=== PATIENT | female | born 1975 | race Hispanic/Latino ===

== ENCOUNTER 2016-12-28 11:12 | Emergency (ER) | payer OTHER ==
[~2016-12-28] VITALS: Ht 165.1 cm; Wt 58.5 kg
[~2016-12-28 11:12] MED LIST: BACTRIM DS 8001 TAB PO; FLEXERIL10 MG PO; MOBIC15 MG PO; MOTRIN 600 MG600 MG PO; POLYTRIM O200 GTT/BO OP; PYRIDIUM100 MG PO
[2016-12-28 12:23] LABS: ABSOLUTE BASOPHIL COUNT 0 /CUMM (0.0-0.2); ABSOLUTE EOSINOPHIL COUNT 0.1 /CUMM (0.0-0.7); ABSOLUTE GRANULOCYTE CT 5.6 /CUMM (1.4-6.5); ABSOLUTE LYMPH COUNT 2.5 /CUMM (1.2-3.4); ABSOLUTE MONOCYTE COUNT 0.5 /CUMM (0.10-0.60); BASOPHIL % 0.5 % (0.0-2.0); EOSINOPHIL % 0.8 % (0-5); GRANULOCYTE % 64.3 % (42.2-75.2); HEMATOCRIT 37.3 % (37-47); MEAN CORPUSCULAR HGB 29.8 PG (27.0-31.0); MEAN CORPUSCULAR HGB CONC 33.6 G/DL (33.0-37.0); MEAN CORPUSCULAR VOLUME 88.7 FL (81.0-99.0); PLATELET COUNT 217 /CUMM (130-400); RBC DISTRIBUTION WIDTH 13.3 % (11.5-14.5); RED BLOOD CELL CT 4.21 /CUMM (4.20-5.40); WHITE BLOOD CELL COUNT 8.7 /CUMM (4.8-10.8)
--- NOTE | 2016-12-28 13:11 | ED GI/GU/ABDOMINAL COMPLAINT ---
History of Present Illness General Chief Complaint: Abdominal Pain/Flank Pain Stated Complaint: KIDNEY PAIN Source: patient Exam Limitations: no limitations Vital Signs & Intake/Output Vital Signs & Intake/Output Vital Signs Date Time Temp Pulse Resp B/P Pulse O2 O2 Flow FiO2 Ox Delivery Rate 12/28 1355 97.6 65 18 119/64 100 Room Air 12/28 1130 98.2 85 20 125/73 100 Room Air Allergies Coded Allergies: NO KNOWN ALLERGIES (11/18/15) Reconcile Medications Ibuprofen 800 MG TABLET 1 TAB PO TID PRN PAIN Triage Note: PT TO ED WITH SON C/O RLQ PAIN RADIATING TO R FLANK X 3 DAYS. DENIES S/S. DENIES N/V/D. AFEBRILE. Triage Nurses Notes Reviewed? yes LMP (ages 10-50): 12/12 ? N Is pt currently ? No Onset: Abrupt Duration: day(s): (e) Timing: recent history Quality/Severity: moderate, sharpness Location: right flank Radiation: RLQ, RIGHT BACK Prior Abdominal Problems: none No Modifying Factors: none Associated Symptoms: abdominal pain HPI: 41 year old female who presents to the ER with right lower quadrang and back for 3 days. Pain is sharp in nature, worse with lying on that side. Denies trauma or fall. Denies urinary sumptoms. No fever or chills. No vomiting. Past History Travel History Traveled to [place] past 21 day No Medical History Any Pertinent Medical History? 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 No Review of Systems Review of Systems Constitutional: Reports: fever (subjective). Denies: chills. EENTM: Reports: no symptoms. Respiratory: Denies: cough, short of breath. Cardiovascular: Denies: chest pain, palpitations, peripheral edema. GI: Reports: abdominal pain. Genitourinary: Reports: frequency. Denies: hematuria. Musculoskeletal: Reports: back pain. Skin: Reports: no symptoms. Neurological/Psychological: Denies: anxiety. Hematologic/Endocrine: Reports: polyuria. Denies: bruising, bleeding, polydipsia. Immunologic/Allergic: Denies: splenectomy. All Other Systems: Reviewed and Negative Physical Exam Physical Exam General Appearance: well developed/nourished, alert, awake, mild distress Head: atraumatic, normal appearance Eyes: Bilateral: normal appearance, PERRL, EOMI. Ears, Nose, Throat, Mouth: hearing grossly normal, dental injury, moist mucous membrane Neck: normal inspection, supple, full range of motion Respiratory: normal breath sounds, chest non-tender, no respiratory distress Cardiovascular: regular rate/rhythm Peripheral Pulses: 2+ radial (R), 2+ radial (L) Gastrointestinal: normal bowel sounds, soft, tenderness (RIGHT FLANK) Back: normal inspection, normal range of motion, NO CVA TENDERNESS Extremities: normal range of motion Neurologic/Psych: no motor/sensory deficits, awake, alert, oriented x 3, normal gait Skin: intact, normal color, warm/dry Core Measures ACS in differential dx? No Severe Sepsis Present: No Septic Shock Present: No Progress Differential Diagnosis: appendicitis, diverticulitis, kidney stone, UTI/pyelo Plan of Care: Orders Procedure Date/time Status Add-on Test (ER Only) 12/28 1318 Active URINE 12/28 1250 Complete URINALYSIS 12/28 1150 Complete COMPREHENSIVE METABOLIC PANEL 12/28 1150 Complete CBC WITHOUT DIFFERENTIAL 12/28 1150 Complete Laboratory Tests 12/28/16 1250: Urine Color YEL, Urine Clarity CLEAR, Urine pH 6.0, Ur Specific Rigby 1.025, Urine Protein NEG, Urine Ketones NEG, Urine Nitrite NEG, Urine Bilirubin NEG, Urine Urobilinogen 0.2, Ur Leukocyte Esterase NEG, Ur Microscopic SEDIMENT EXAMINED, Urine RBC 1-3, Ur Epithelial Cells MOD H, Urine Mucus FEW, Urine Hemoglobin TRACE-INTACT, Urine Glucose NEG, Urine Test NEGATIVE 12/28/16 1215: Anion Gap 8, Estimated GFR > 60, BUN/Creatinine Ratio 16.7, Glucose 99, Calcium 9.3, Total Bilirubin 0.3, AST 19, ALT 26, Alkaline Phosphatase 39, Total Protein 7.2, Albumin 4.3, Globulin 2.9, Albumin/Globulin Ratio 1.5, CBC w Diff NO MAN DIFF REQ, RBC 4.21, MCV 88.7, MCH 29.8, RDW 13.3, MPV 8.0, Gran % 64.3, Lymphocytes % 28.3, Monocytes % 6.1, Eosinophils % 0.8, Basophils % 0.5, Absolute Granulocytes 5.6, Absolute Lymphocytes 2.5, Absolute Monocytes 0.5, Absolute Eosinophils 0.1, Absolute Basophils 0, PUBS MCHC 33.6 Diagnostic Imaging: Viewed by Me: Ultrasound. Discussed w/RAD: Ultrasound. Radiology Impression: PATIENT: FEI QUINONEZ PRESENT AGE: 41 PATIENT ACCOUNT NO: [id number] : 75 LOCATION: [facility] ORDERING PHYSICIAN: RIVKA AUGUSTINE MD SERVICE DATE: 12/28/16 EXAM TYPE: US - US- RENAL/KIDNEY EXAMINATION: RENAL ULTRASOUND CLINICAL INFORMATION: Left flank pain. COMPARISON: None. TECHNIQUE: Real-time imaging of the kidneys and bladder. FINDINGS: RIGHT KIDNEY: There is neither hydronephrosis nor nephrolithiasis. The right kidney measures 10.4 cm. LEFT KIDNEY: There is no hydronephrosis. There is a 5 mm nonobstructive calculus within the upper pole. The left kidney measures 10.0 cm. BLADDER: The urinary bladder is partially filled and unremarkable. There is no wall thickening. There is no pelvic free fluid. IMPRESSION: Nonobstructive right upper pole renal calculus. Otherwise, unremarkable renal ultrasound. DICTATED BY: GET MULLEN MD DATE/TIME DICTATED:12/28/161510 [employer] MANAGER:TERESITA DATE/TIME TRANSCRIBED:12/28/161510 CONFIDENTIAL, DO NOT COPY WITHOUT APPROPRIATE AUTHORIZATION. <Electronically signed in Other Vendor System> SIGNED BY: GET MULLEN MD 12/28/161518 Initial ED EKG: none Departure Departure Time of Disposition: 1529 Disposition: HOME OR SELF CARE Condition: Stable Clinical Impression Primary Impression: Flank pain Referrals: CHRISTEN TREVIÑO MD (PCP/Family) Additional Instructions: Take the ibuprofen as directed. Please follow up with primary care doctor in the office. Return to the ER for any changing or worsening symptoms. Departure Forms: Customer Survey General Discharge Information Prescriptions: Current Visit Scripts Ibuprofen 1 TAB PO TID PRN PAIN #20 TAB
--- NOTE | 2016-12-28 15:19 | ULTRASOUND REPORT ---
EXAMINATION: RENAL ULTRASOUND CLINICAL INFORMATION: Left flank pain. COMPARISON: None. TECHNIQUE: Real-time imaging of the kidneys and bladder. FINDINGS: RIGHT KIDNEY: There is neither hydronephrosis nor nephrolithiasis. The right kidney measures 10.4 cm. LEFT KIDNEY: There is no hydronephrosis. There is a 5 mm nonobstructive calculus within the upper pole. The left kidney measures 10.0 cm. BLADDER: The urinary bladder is partially filled and unremarkable. There is no wall thickening. There is no pelvic free fluid. IMPRESSION: Nonobstructive right upper pole renal calculus. Otherwise, unremarkable renal ultrasound.
[2016-12-28] MEDS ORDERED: IBUPROFEN800 M1 PO (15:32)
[2016-12-28 15:34] VITALS: BP 118/58
== END 2016-12-28 15:39 ==
LOC: ERH 11:12
PROVIDERS: Emergency Medicine
DX: R10.9 Unspecified abdominal pain (principal)
CPT/HCPCS: 76775; 81001; 81025; 96372; J1885

== ENCOUNTER 2017-03-02 21:54 | Emergency (ER) | payer OTHER ==
[~2017-03-02] VITALS: Ht 165.1 cm; Wt 63.5 kg
[~2017-03-02 21:54] MED LIST changes: +IBUPROFEN800 M1 PO
[2017-03-02 22:35] LABS: ABSOLUTE BASOPHIL COUNT 0 /CUMM (0.0-0.2); ABSOLUTE EOSINOPHIL COUNT 0 /CUMM (0.0-0.7); ABSOLUTE GRANULOCYTE CT 6.5 /CUMM (1.4-6.5); ABSOLUTE LYMPH COUNT 1.1 /CUMM (1.2-3.4); ABSOLUTE MONOCYTE COUNT 0.4 /CUMM (0.10-0.60); BASOPHIL % 0.4 % (0.0-2.0); EOSINOPHIL % 0.4 % (0-5); GRANULOCYTE % 80.6 % (42.2-75.2); HEMATOCRIT 37.7 % (37-47); MEAN CORPUSCULAR HGB 29.5 PG (27.0-31.0); MEAN CORPUSCULAR HGB CONC 33.4 G/DL (33.0-37.0); MEAN CORPUSCULAR VOLUME 88.2 FL (81.0-99.0); MEAN PLATELET VOLUME 8.1 FL (7.4-10.4); PLATELET COUNT 177 /CUMM (130-400); RBC DISTRIBUTION WIDTH 13.2 % (11.5-14.5); RED BLOOD CELL CT 4.27 /CUMM (4.20-5.40); WHITE BLOOD CELL COUNT 8.1 /CUMM (4.8-10.8)
--- NOTE | 2017-03-02 23:19 | ED CARDIAC/CP/PALPITATIONS ---
History of Present Illness General Chief Complaint: Chest Pain Stated Complaint: CHEST PAIN X 15MIN Source: patient Exam Limitations: no limitations Vital Signs & Intake/Output Vital Signs & Intake/Output Vital Signs Date Time Temp Pulse Resp B/P Pulse O2 O2 Flow FiO2 Ox Delivery Rate 03/02 2257 97 Room Air 03/029 98.5 93 18 154/75 97 Room Air ED Intake and Output 03/03 0000 03/02 1200 Intake Total Output Total Balance Patient 140 lb Weight Allergies Coded Allergies: NO KNOWN ALLERGIES (11/18/15) Reconcile Medications Ibuprofen 800 MG TABLET 1 TAB PO TID PRN PAIN Triage Note: PT FROM HOME C/O CP SINCE 209903/01/17. PT STATES CP WAS INTERMITTENT AND WENT AWAY RETURNING 212903/02/17. PT STATES THAT LEFT ARM IS NUMB/TINGLING PAIN RADIATES TO NECK AND LEFT SHOULDER WELL LEFT EYE AND JAW PAIN. PT STATESW 8/10 PAIN. PT DENIES DAILY MEDICATIONS OR A MED SURG HX. PT DENIES EATING ANY NEW OR SPICY FOODS. EKG COMPLETED. VS STABLE. AWAITING PROVIDER EVAL Triage Nurses Notes Reviewed? yes : No Patient currently breastfeeds: No HPI: Patient presents for evaluation of left-sided chest pain that began abruptly about 15 minutes prior to arrival. The patient is describing a severe sharp stabbing left sided knifelike pain that lasts for about 30-60 seconds and occurs intermittently. She is in no pain currently. She denies any prior episodes. In addition she is describing an associated left posterior neck pain left eye pain and low back pain. She denies fever or cold symptoms. She denies change with deep inspiration or movement. denies Leg pain. Past History Travel History Traveled to [place] past 21 day No Medical History Any Pertinent Medical History? 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 No Review of Systems Review of Systems Constitutional: Reports: no symptoms. EENTM: Reports: no symptoms. Respiratory: Reports: no symptoms. Cardiovascular: Reports: chest pain. GI: Reports: no symptoms. Genitourinary: Reports: no symptoms. Musculoskeletal: Reports: no symptoms. Skin: Reports: no symptoms. Neurological/Psychological: Reports: no symptoms. Hematologic/Endocrine: Reports: no symptoms. Immunologic/Allergic: Reports: no symptoms. All Other Systems: Reviewed and Negative Physical Exam Physical Exam Cardiovascular: SEE BELOW Comments: Gen.: Well-nourished, well-developed, no acute respiratory distress. Head: Normocephalic, atraumatic. Eyes: Normal inspection bilaterally Ears: Normal inspection bilaterally Nose: Normal inspection Face: Nontender to percussion Throat/mouth : Moist mucosa , no pharyngeal erythema Neck: Supple, full range of motion, no goiter, nontender Heart: Regular rate and rhythm, no murmurs rubs or gallops Lungs: Clear to auscultation bilaterally with normal air entry Chest: Mild left tenderness that reproduced the pain of the chief complaint Back: Normal range of motion, nontender Abdomen: Soft, nontender, nondistended, normal bowel sounds, no organosplenomegaly Extremities: Normal range of motion grossly, equal radial pulses, no cyanosis clubbing or edema, calves nontender Neurologic: Cranial nerves grossly intact, speech is clear Skin: warm and dry Psychiatric: Calm, cooperative, no apparent delusions or hallucinations Core Measures ACS in differential dx? No Severe Sepsis Present: No Septic Shock Present: No Progress Differential Diagnosis: AMI, costochondritis, musculoskeletal pain, pericarditis , pneumonia, pneumothorax, pulmonary embolism, unstable angina Plan of Care: Orders Procedure Date/time Status XRY-CHEST XRAY, PA AND LATERAL 03/02 2318 Active LIPASE 03/02 2225 Complete AMYLASE 03/02 2225 Complete TROPONIN LEVEL 03/02 2221 Complete COMPREHENSIVE METABOLIC PANEL 03/02 2221 Complete CBC WITHOUT DIFFERENTIAL 03/02 2221 Complete EKG 03/02 2155 Active Laboratory Tests 03/02/17 222: Anion Gap 13, Estimated GFR > 60, BUN/Creatinine Ratio 18.3, Glucose 114 H, Calcium 8.5, Total Bilirubin 0.5, AST 17, ALT 27, Alkaline Phosphatase 38, Troponin I < 0.01, Total Protein 6.9, Albumin 4.2, Globulin 2.7, Albumin/ Globulin Ratio 1.6, Amylase 34, Lipase 85, CBC w Diff NO MAN DIFF REQ, RBC 4.27, MCV 88.2, MCH 29.5, RDW 13.2, MPV 8.1, Gran % 80.6 H, Lymphocytes % 13.5 L, Monocytes % 5.1, Eosinophils % 0.4, Basophils % 0.4, Absolute Granulocytes 6.5, Absolute Lymphocytes 1.1 L, Absolute Monocytes 0.4, Absolute Eosinophils 0, Absolute Basophils 0, PUBS MCHC 33.4 03/02/17 2224: Amylase Cancelled, Lipase Cancelled Initial ED EKG: NSR, rate (91) Prior EKG: unchanged Comments: 03/03/2017 12:57:02 AM Josephine's pain has resolved. I have updated her on test results. I considered the following: Pericarditis but the patient had no pericardial friction rub, no preceding viral illnesses and no EKG changes consistent with this. Acute coronary syndrome but the patient's EKG showed no acute changes, the troponin level was normal, the patient had a paucity of risk factors and the patient's clinical presentation wasn't consistent with this. Pneumothorax but the chest x-ray did not show this. Pneumonia but the chest x-ray did not show infiltrate. Pulmonary embolus but the patient had no resting tachycardia, was not hypoxic, had a paucity of risk factors and was PERC negative. Aortic aneurysm but the description of the patient's pain was inconsistent with this. The chest x-ray showed no widened mediastinum or other changes consistent with this. In addition the patient had a paucity of risk factors. Departure Departure Disposition: HOME OR SELF CARE Condition: Stable Clinical Impression Primary Impression: Chest wall pain Referrals: CHRISTEN TREVIÑO MD (PCP/Family) Additional Instructions: Voltaren as prescribed for pain. Follow-up with your primary care doctor this week for reevaluation. Return if any concerns or sudden worsening. Thank you for choosing the [facility] Emergency Department for your care. It was a pleasure to serve you today. Ángel Jackson M.D. [facility] Departure Forms: Customer Survey General Discharge Information Prescriptions: Current Visit Scripts Diclofenac Potassium 1 TAB PO TID PRN PAIN #30 TAB Critical Care Note Critical Care Note Critical Care Time: non-applicable
[2017-03-03] MEDS ORDERED: DICLOFENAC POTA50 M1 PO (00:59)
[2017-03-03 01:00] VITALS: BP 111/69
--- NOTE | 2017-03-03 01:09 | RADIOLOGY REPORT ---
EXAMINATION: XR CHEST CLINICAL INFORMATION: Effusion. Infiltrate. Left chest pain. COMPARISON: No relevant prior imaging available. TECHNIQUE: 2 views of the chest were obtained. FINDINGS: Lungs are well-expanded. There is no focal consolidative disease, pleural effusion, or pneumothorax. The cardiac silhouette and upper mediastinal contours are normal. No acute osseous finding. IMPRESSION: Unremarkable examination with no consolidative disease or effusion.
== END 2017-03-03 01:08 ==
LOC: ERH 21:54
PROVIDERS: Emergency Medicine
DX: R07.89 Other chest pain (principal)
CPT/HCPCS: 93005; 93010; 96374; J1885